=== PATIENT | male | born 1980 | race Caucasian/White ===

== ENCOUNTER 2016-11-10 12:14 | Emergency (ER) | payer OTHER ==
[~2016-11-10] VITALS: Ht 172.7 cm; Wt 103.4 kg
[2016-11-10 12:41] VITALS: BP 141/75
[2016-11-10 15:33] LABS: BASOPHIL % 0.1 % (0-2); PLATELET COUNT 249 x10^3mcL (130-400); RED CELL DISTRIBUTION WIDTH 13.1 % (11.5-14.5)
[2016-11-10 15:41] LABS: CALCIUM 8.3 mg/dL (8.5-10.1); CHLORIDE SERUM 102 mmol/L (98-107); CREATININE SERUM 0.9 mg/dL (0.7-1.3); GFR1 > 60 mL/min; GLUCOSE SERUM 111 mg/dL (74-106); SODIUM SERUM 139 mmol/L (136-145)
[2016-11-10 15:45] LABS: ALBUMIN 3.6 g/dL (3.4-5.0); ALKALINE PHOSPHATASE 71 U/L (46-116); ALT/SGPT 63 U/L (16-63); AST/SGOT 97 U/L (15-37); BILIRUBIN TOTAL 1.4 mg/dL (0.20-1.00); LIPASE 55 IU/L (73-393); TOTAL PROTEIN, SERUM 7.3 g/dL (6.4-8.2)
== END 2016-11-10 17:25 | disposition home or self-care (01) ==
LOC: ED 12:14
PROVIDERS: Emergency Medicine
DX: R10.9 Unspecified abdominal pain (principal); R19.7 Diarrhea, unspecified
CPT/HCPCS: 87046; 87046-59

== ENCOUNTER 2017-07-21 15:36 | Emergency (ER) | payer MEDICAID ==
[~2017-07-21] VITALS: Ht 172.7 cm; Wt 111.8 kg
[2017-07-21 17:11] VITALS: BP 139/80
== END 2017-07-21 17:11 | disposition home or self-care (01) ==
LOC: ED 15:36
DX: H61.22 Impacted cerumen, left ear (principal)